=== PATIENT | female | born 1995 | race Caucasian/White ===

== ENCOUNTER 2019-05-07 01:23 | Emergency (ER) | payer OTHER ==
[~2019-05-07] VITALS: Ht 167.6 cm; Wt 114.3 kg
[2019-05-07 01:45] VITALS: Ht 167.6 cm; Wt 114.3 kg
[2019-05-07 04:54] VITALS: BP 132/78
== END 2019-05-07 04:54 | disposition home or self-care (01) ==
LOC: ED 01:23
DX: S09.8XXA Other specified injuries of head, initial encounter (principal); S13.4XXA Sprain of ligaments of cervical spine, initial encounter; W18.09XA Striking against other object with subsequent fall, initial encounter; Y93.89 Activity, other specified; Y92.89 Other specified places as the place of occurrence of the external cause; Y99.0 Civilian activity done for income or pay
CPT/HCPCS: J2765